=== PATIENT | female | born 1945 | race Caucasian/White ===

== ENCOUNTER 2022-01-24 15:17 | Observation (INO) ==
[2022-01-24] MEDS ORDERED: ALBUT/IPRATROP 3MG/0.5MG NEB 3 ML VIAL INH STA (16:12)
[2022-01-24] MEDS ORDERED: CEFEPIME 2,000 MG/20 ML VIAL IV STA (16:14)
--- NOTE | 2022-01-24 16:16 | Emergency Department Note ---
Impression & Plan Hypoxia, SOB (shortness of breath), Acute bronchitis, COPD exacerbation, Anemia ED Provider Note NAME: DEREK WYNNE AGE: 76 SEX: F : 1945 ARRIVES VIA: Walk-In INFORMANT: [Patient] ED PROVIDER(S): [Narciso Meneses MD] CHIEF COMPLAINT: Shortness of breath HISTORY OF PRESENT ILLNESS: The patient is a 76-year-old female presents to the ER with about a week and a half of increasing shortness of breath. She has had some fever and chills and a productive cough. Things are worse today than they were just a few days ago. She is vaccinated for COVID-19 and influenza. No sick contacts. There has been no vomiting or diarrhea. She feels congested in the nose as well as the chest. No abdominal pain or chest pain. The patient does have COPD, she has had pneumonia in the past. REVIEW OF SYSTEMS: See HPI for pertinent positives and negatives. A total of ten systems were reviewed and were otherwise negative. PMHx/PSHx: See Below SOCIAL HISTORY: See Below. PHYSICAL EXAM: GENERAL: Patient is in no acute distress. HEENT: No acute trauma, normocephalic atraumatic, mucous membranes moist, no nasal congestion, no scleral icterus. NECK: No stridor, no adenopathy, no meningismus, trachea is midline. LUNGS: Diminished breath sounds bilaterally, breath sounds are equal. Wheezes heard bilaterally. HEART: Without murmurs gallops or rubs, regular rate and rhythm. ABDOMEN: Soft, nontender, bowel sounds positive, no hernias, no peritonitis. EXTREMITIES: No cyanosis or edema, full range of motion of all the joints without pain or difficulty, no signs for acute trauma. NEUROLOGIC: Oriented x 3, no acute motor or sensory deficits, no focal weakness. SKIN: No rash, no jaundice, no diaphoresis. DIFFERENTIAL DIAGNOSIS: Reactive airway disease, COVID-19, influenza, pneumonia, pneumothorax, COPD, CHF, infection, cardiac ischemia, pulmonary embolism, bronchitis, musculoskeletal, gastrointestinal, as well as other pathologies. EMERGENCY DEPARTMENT COURSE/PROCEDURES: ECG: Indication was shortness of breath. The ECG shows a normal sinus rhythm with a rate of 70. There is some nonspecific ST change. There is no ST elevation, no PVCs. The QTc is 423. Continuous Cardiac Monitoring: An order was placed for continuous cardiac monitoring. The monitor shows a rate of 73 with normal sinus rhythm. Critical Care Note: I have personally spent 43 minutes of critical care time in the direct management of this patient. This includes bedside care, interpretation of diagnostic studies, and testing, discussion with consultants, patient, and family members, and other required patient management activities. This 43 minutes is in excess of all separately billable procedures. MEDICAL DECISION MAKING: There is no leukocytosis. The patient is anemic. She has a history of anemia although, her hemoglobin value today is lower than recent testing. There is a normal platelet count. No coagulopathy. No concerning electrolyte abnormality, no renal failure. No worrisome liver enzyme elevation. Lactic acid level was not elevated making severe sepsis less likely. ECG shows a normal sinus rhythm, no obvious acute ischemia. Cardiac enzyme testing x1 does not show evidence for acute cardiac injury. COVID, influenza and RSV test returned negative. Chest film does not show pneumonia, pneumothorax or CHF. The patient presents hypoxic. She was requiring O2 supplementation. She was given IV cefepime for antibiotic coverage. She received a DuoNeb. The patient does seem to be feeling improved. She looks better since her treatment here in the ED. The patient appears to have an acute bronchitis with a flare of her COPD. This has led to hypoxia. She has been short of breath. She does require a hospital stay. I spoke with the patient and her family, the on-call hospitalist was consulted. Case management has been involved. 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 of knees, bilateral Osteoporosis Temporomandibular joint disorder Thoracic back pain Surgical History History of arthroscopy of left knee History of bunionectomy History of colonoscopy S/P appendectomy S/P breast biopsy S/P cataract extraction S/P kyphoplasty S/P trigger finger release S/P tubal ligation Family History Sister Colorectal cancer Hypertension Brother Diabetes Colorectal cancer Grandmother (Maternal) Breast cancer Mother Coronary heart disease Diabetes Denies family history of Ovarian cancer Prostate cancer Myocardial infarction Social History Smoking Status: Never smoker Age Started Using Tobacco: 15; packs per day: 0.5; Cigarettes Per Day: 10 CIG DAILY; Second Hand Exposure: Yes; Hx Alcohol Use: Yes Alcohol type: beer and wine Hx Substance Use: No Preferred Language: Turkish Communication Ability: Effective Visual Impairment: No Limitations Hearing Ability: Normal Health And Wellness Advisor Required: No Beliefs That Will Affect Care: None marital status: / Current Living Situation: Alone Current Living Situation Comment: [facility] current occupational status: retired Feels Safe at Home: Yes Childhood Exposure to Second-Hand Smoke: No caffeine: Yes (coffee) Dental Care, Regularly: No Physical Activity Frequency: Does not Exercise Physical Activity Frequency Comment: limited to back and legs/now knee Seatbelt Use: always Sunscreen Use: No Do you think of yourself as: straight/heterosexual Assistive Devices: Cane and Glasses Allergies Allergies Allergy/AdvReac Type Severity Reaction Status Date / Time celecoxib Allergy Severe GI BLEED Verified 01/24/22 18:12 Iodinated Contrast Media Allergy Intermediate HIVES Verified 01/24/22 18:12 ondansetron Allergy Intermediate ITCHING Verified 01/24/22 18:12 prednisone Allergy Intermediate HIVES Verified 01/24/22 18:12 valdecoxib [From Bextra] Allergy Unknown "can't Verified 01/24/22 18:12 remember" clarithromycin AdvReac Intermediate GI UPSET Verified 01/24/22 18:12 fluticasone AdvReac Intermediate GI UPSET Verified 01/24/22 18:12 salmeterol AdvReac Intermediate GI UPSET Verified 01/24/22 18:12 ALL METALS Allergy Intermediate RASH Uncoded 01/24/22 18:12 Home Meds Home Medications Medication Instructions Recorded Confirmed clonazepam 0.5 mg tablet 0.5 mg PO BID PRN #90 tab 02/18/19 01/24/22 cetirizine 10 mg tablet 10 mg PO DAILY PRN 12/10/20 01/24/22 Previous Rx's Medication Instructions Recorded escitalopram oxalate 20 mg tablet 20 mg PO DAILY #90 tab 02/18/19 zolpidem 5 mg tablet 5 mg PO HS #30 tab 02/18/19 albuterol sulfate 90 mcg/actuation 2 puff INH QID PRN #18 gm 07/18/20 aerosol inhaler (Ventolin HFA) cholecalciferol (vitamin D3) 50 50 mcg PO DAILY #90 cap 09/01/20 mcg (2,000 unit) capsule wheeled walker with brakes and seat #1 ea 12/11/20 famotidine 40 mg tablet 40 mg PO HS #90 tab 08/24/21 umeclidinium 62.5 mcg/actuation 1 inh INHALATION DAILY #1 ea 08/24/21 blister powder for inhalation triamterene 37.5 0.5 tab PO DAILY #45 tab 09/30/21 mg-hydrochlorothiazide 25 mg tablet aripiprazole 10 mg tablet (Abilify) 10 mg PO DAILY #90 tab 01/24/22 Results & Data (ED) Vital Signs Vital Signs - 24 hr 01/24/22 15:57 01/24/22 15:58 01/24/22 16:25 Temperature 36.5 C Temperature Source Oral Pulse Rate 72 73 Pulse Rate [Finger] 76 Pulse Rhythm Regular Regular Pulse Rhythm [Finger] Regular Pulse Strength Normal Pulse Strength [Finger] Normal Respiratory Rate 24 25 H Respiratory Effort / Characteristics Labored Accessory Muscle Use Respiratory Depth Normal Shallow Respiratory Pattern Regular Tachypnea Blood Pressure 115/73 Blood Pressure [Right Arm] 133/70 Blood Pressure Mean 87 Blood Pressure Mean [Right Arm] 91 Blood Pressure Position Sitting Blood Pressure Position [Right Arm] Lying Pulse Oximetry 82 L 96 94 Oxygen Delivery Method Room Air Nasal Cannula Nasal Cannula Oxygen Flow Rate 2 2 Sepsis Recent Fever Within 48 Hours No Sepsis New/Unexplained Change in Mental Status No Sepsis Action Taken by Nursing No Action Required 01/24/22 17:06 Temperature Temperature Source Pulse Rate Pulse Rate [Finger] 77 Pulse Rhythm Pulse Rhythm [Finger] Regular Pulse Strength Pulse Strength [Finger] Normal Respiratory Rate 22 Respiratory Effort / Characteristics Non-Labored Respiratory Depth Normal Respiratory Pattern Tachypnea Blood Pressure Blood Pressure [Right Arm] 125/85 Blood Pressure Mean Blood Pressure Mean [Right Arm] 98 Blood Pressure Position Blood Pressure Position [Right Arm] Sitting Pulse Oximetry 92 Oxygen Delivery Method Nasal Cannula Oxygen Flow Rate 2 Sepsis Recent Fever Within 48 Hours Sepsis New/Unexplained Change in Mental Status Sepsis Action Taken by Long Term Medications Current Medication List: was personally reviewed by me Laboratory Data Attestation: I reviewed the patient's lab results. Result diagrams: 01/24/22 16:16 01/24/22 16:16 Lab Results 01/24/22 01/24/22 01/24/22 Range/Units 16:16 16:16 16:16 WBC 5.55 (4.8-10.8) K/uL RBC 4.05 L (4.2-5.4) M/uL Hgb 10.4 L (12.0-16.0) g/dL Hct 33.7 L (37-47) % MCV 83.2 (80-100) fL MCH 25.7 (25-34) pg MCHC 30.9 L (32-36) g/dL RDW Std Deviation 46.0 (36.4-46.3) fL RDW Coeff of Shivam 15.2 H (11.5-14.5) % Plt Count 290 (130-400) K/uL MPV 10.6 H (7.4-10.4) fL Immature Gran % (Auto) 0.4 % Neut % (Auto) 58.6 % Lymph % (Auto) 20.5 % Early % (Auto) 14.6 % Eos % (Auto) 5.0 % Baso % (Auto) 0.9 % Neut # (Auto) 3.25 (1.4-6.5) K/uL Lymph # (Auto) 1.14 L (1.2-3.4) K/uL Early # (Auto) 0.81 H (0.11-0.59) K/uL Eos # (Auto) 0.28 (0-0.5) K/uL Baso # (Auto) 0.05 (0-0.2) K/uL Immature Gran # (Auto) 0.02 (0.00-0.02) K/uL PT 10.8 (9.0-12.0) Seconds INR 1.0 (0.9-1.1) APTT 27.3 (21.0-31.0) Seconds PTT Ratio 1.0 Sodium 139 (136-145) mmol/L Potassium 3.5 (3.5-5.1) mmol/L Chloride 98 (98-107) mmol/L Carbon Dioxide 34 H (21-32) mmol/L Anion Gap 7 (3-11) BUN 20 (6-23) mg/dl Creatinine 0.99 (0.6-1.2) mg/dl Est Cr Clr Drug Dosing 54.8 ml/min Est GFR ( Amer) 64.2 ml/min Est GFR (Non-Af Amer) 55.4 ml/min BUN/Creatinine Ratio 20.2 H (10-20) Glucose 88 (70-99(Fasting)) mg/dl Lactate (0.4-2.0) mmol/L Calcium 10.2 H (8.5-10.1) mg/dl Total Bilirubin 0.5 (0.2-1.0) mg/dl AST 18 (13-39) U/L ALT 22 (7-52) U/L Alkaline Phosphatase 70 (34-104) U/L Troponin I High Sens 7.0 (0-14) pg/ml Total Protein 7.6 (6.0-8.3) gm/dl Albumin 4.0 (3.4-5.0) gm/dl Globulin 3.6 (2.5-4.0) gm/dl Albumin/Globulin Ratio 1.1 (0.9-2) SARS-CoV-2 (PCR) (Negative) Influenza Type A (PCR) (Neg) Influenza Type B (PCR) (Neg) RSV (RT-PCR) (Neg) 01/24/22 01/24/22 Range/Units 16:21 16:33 WBC (4.8-10.8) K/uL RBC (4.2-5.4) M/uL Hgb (12.0-16.0) g/dL Hct (37-47) % MCV (80-100) fL MCH (25-34) pg MCHC (32-36) g/dL RDW Std Deviation (36.4-46.3) fL RDW Coeff of Shivam (11.5-14.5) % Plt Count (130-400) K/uL MPV (7.4-10.4) fL Immature Gran % (Auto) % Neut % (Auto) % Lymph % (Auto) % Early % (Auto) % Eos % (Auto) % Baso % (Auto) % Neut # (Auto) (1.4-6.5) K/uL Lymph # (Auto) (1.2-3.4) K/uL Early # (Auto) (0.11-0.59) K/uL Eos # (Auto) (0-0.5) K/uL Baso # (Auto) (0-0.2) K/uL Immature Gran # (Auto) (0.00-0.02) K/uL PT (9.0-12.0) Seconds INR (0.9-1.1) APTT (21.0-31.0) Seconds PTT Ratio Sodium (136-145) mmol/L Potassium (3.5-5.1) mmol/L Chloride (98-107) mmol/L Carbon Dioxide (21-32) mmol/L Anion Gap (3-11) BUN (6-23) mg/dl Creatinine (0.6-1.2) mg/dl Est Cr Clr Drug Dosing ml/min Est GFR ( Amer) ml/min Est GFR (Non-Af Amer) ml/min BUN/Creatinine Ratio (10-20) Glucose (70-99(Fasting)) mg/dl Lactate 0.7 (0.4-2.0) mmol/L Calcium (8.5-10.1) mg/dl Total Bilirubin (0.2-1.0) mg/dl AST (13-39) U/L ALT (7-52) U/L Alkaline Phosphatase (34-104) U/L Troponin I High Sens (0-14) pg/ml Total Protein (6.0-8.3) gm/dl Albumin (3.4-5.0) gm/dl Globulin (2.5-4.0) gm/dl Albumin/Globulin Ratio (0.9-2) SARS-CoV-2 (PCR) NEGATIVE (Negative) Influenza Type A (PCR) Negative (Neg) Influenza Type B (PCR) Negative (Neg) RSV (RT-PCR) Negative (Neg) Administered Medications Albuterol (Albut/Ipratrop 3mg/0.5mg Neb 3 Ml Vial) 3 ml NEB QIDR [facility]; Protocol Stop: 02/23/22 19:43 Last Admin: 01/24/22 20:39 Dose: 3 ml Documented by: [id number] Enoxaparin Sodium (Enoxaparin Inj 40 Mg/0.4 Ml Syr) 40 mg SQ Q24H TERRANCE Stop: 02/23/22 20:59 Last Admin: 01/24/22 21:47 Dose: 40 mg Documented by: [id number] Famotidine (Famotidine 40 Mg Tablet) 40 mg PO HS TERRANCE Stop: 02/23/22 20:59 Last Admin: 01/24/22 21:49 Dose: 40 mg Documented by: [id number] Formoterol Fumarate (Formoterol 20 Mcg/2 Ml Vial) 20 mcg NEB BIDR TERRANCE Stop: 02/23/22 18:59 Last Admin: 01/24/22 21:12 Dose: Not Given Documented by: [id number] Zolpidem Tartrate (Zolpidem Tartrate 5 Mg Tab) 5 mg PO HS TERRANCE Stop: 02/23/22 20:59 Last Admin: 01/24/22 21:48 Dose: 5 mg Documented by: [id number] Discontinued Medications Albuterol (Albut/Ipratrop 3mg/0.5mg Neb 3 Ml Vial) 3 ml INH NOW STA Stop: 01/24/22 16:13 Last Admin: 01/24/22 16:42 Dose: 3 ml Documented by: [id number] Azithromycin (Azithromycin 250 Mg Tab) 500 mg PO NOW ONE Stop: 01/24/22 19:45 Last Admin: 01/24/22 21:48 Dose: 500 mg Documented by: [id number] Cefepime HCl (Maxipime) 2,000 mg in 20 mls @ 5 mls/min IV NOW STA; Protocol Stop: 01/24/22 16:17 Last Admin: 01/24/22 16:41 Dose: 5 mls/min Documented by: [id number] Imaging Data Radiologist's Impression: Chest X-Ray 01/24/22 16:12 XR chest 1V portable CLINICAL HISTORY: SOB. Positive Covid COMPARISON STUDY: 12/25/2015 TECHNIQUE: 1 view of the chest FINDINGS: Single frontal view of the chest demonstrates the cardiomediastinal silhouette to be within normal limits. There is a decreased inspiratory effort with elevation of the hemidiaphragms and crowding of the bronchovascular markings at the lung bases and centrally. The lungs are clear of alveolar opacities. There is no evidence for pleural effusion. There is no evidence for vascular congesti on. There is no acute osseous pathology. IMPRESSION: 1. There is a decreased inspiratory effort with otherwise no acute chest disease. ACT 112: Negative or not required by law. Electronically signed by: Gonzales Andres M.D. 01/24/2022 4:46 PM Discharge Plan Visit Data Chief Complaint: Shortness of Breath/Dyspnea Stated Complaint: SHORTNESS OF BREATH ED Provider: Narciso Meneses Discharge Problem: Hypoxia, SOB (shortness of breath), Acute bronchitis, COPD exacerbation, Anemia Patient Disposition: Admitted As Inpatient Condition: Fair Discharge Instructions Interventions: ED Discharge Assessment Last Done: 01/24/22 19:28
[2022-01-24 16:36] LABS: Basophils # (auto) 0.05 K/uL (0-0.2); Basophils % (auto) 0.9 %; Eosinophils # (auto) 0.28 K/uL (0-0.5); Hematocrit (blood only) 33.7 % (37-47); Hemoglobin 10.4 g/dL (12.0-16.0); Immature Granulocytes # (auto) 0.02 K/uL (0.00-0.02); Immature Granulocytes % (auto) 0.4 %; Lymphocytes # (auto) 1.14 K/uL (1.2-3.4); Lymphocytes % (auto) 20.5 %; Mean Corpuscular Hemoglobin 25.7 pg (25-34); Mean Corpuscular Hgb Conc 30.9 g/dL (32-36); Mean Corpuscular Volume 83.2 fL (80-100); Mean Platelet Volume 10.6 fL (7.4-10.4); Monocytes # (auto) 0.81 K/uL (0.11-0.59); Monocytes % (auto) 14.6 %; Neutrophils # (auto) 3.25 K/uL (1.4-6.5); Neutrophils % (auto) 58.6 %; Platelet Count 290 K/uL (130-400); RDW Coefficient of Variation 15.2 % (11.5-14.5); Red Blood Count 4.05 M/uL (4.2-5.4); White Blood Count 5.55 K/uL (4.8-10.8)
[2022-01-24 16:44] LABS: Partial Thromboplastin Time 27.3 Seconds (21.0-31.0); Prothrombin Time 10.8 Seconds (9.0-12.0)
--- NOTE | 2022-01-24 16:48 | XRay Report ---
XR chest 1V portable CLINICAL HISTORY: SOB. Positive Covid COMPARISON STUDY: 12/25/2015 TECHNIQUE: 1 view of the chest FINDINGS: Single frontal view of the chest demonstrates the cardiomediastinal silhouette to be within normal li mits. There is a decreased inspiratory effort with elevation of the hemidiaphragms and crowding of th e bronchovascular markings at the lung bases and centrally. The lungs are clear of alveolar opacities . There is no evidence for pleural effusion. There is no evidence for vascular congestion. There is n o acute osseous pathology. IMPRESSION: 1. There is a decreased inspiratory effort with otherwise no acute chest disease. ACT 112: Negative or not required by law. Electronically signed by: Gonzales Andres M.D. 01/24/2022 4:46 PM
[2022-01-24 16:54] LABS: Albumin Globulin Ratio 1.1 (0.9-2); BUN Creatinine Ratio 20.2 (10-20); Bilirubin,Total 0.5 mg/dl (0.2-1.0); Calcium 10.2 mg/dl (8.5-10.1); Creatinine Clr Calc Pharmacy 54.8 ml/min; Est GFR (African American) 64.2 ml/min; Est GFR (Non-African American) 55.4 ml/min; Globulin 3.6 gm/dl (2.5-4.0); Potassium 3.5 mmol/L (3.5-5.1); Total Protein 7.6 gm/dl (6.0-8.3)
[2022-01-24 17:24] LABS: Influenza A virus by PCR Negative (Neg); Influenza B virus by PCR Negative (Neg); RSV by PCR Negative (Neg); SARS CoV2 RNA(COVID-19) InHosp NEGATIVE (Negative)
--- NOTE | 2022-01-24 17:49 | History & Physical Report ---
Date of Service January 24, 2022 Assessment & Plan (1) Chronic obstructive pulmonary disease: Plan: Acute on chronic respiratory failure with hypoxia. Patient with a history of tobacco abuse and likely COPD. No lobar pneumonia is noted and initial viral studies for COVID influenza and RSV are negative. Patient reportedly with sensitivities steroids. Will provide scheduled albuterol and Atrovent as well as inhaled long-acting beta agonist. We will hold her Incruse at this time chest physiotherapy will be employed supplemental oxygen will be used Patient does not have a lobar pneumonia she will be placed on azithromycin for bronchitis She says she has a sensitivity to prednisone therapy which causes her increased agitation etc. however the patient is open to taking intravenous steroids of other types Patient was counseled about tobacco cessation (2) Depression: Plan: Patient will continue escitalopram and clonazepam as needed (3) Hypertension: Plan: For hypertension she takes triamterene hydrochlorothiazide blood pressure on presentation is controlled to low Plan: Patient be continued on Pepcid and a PPI, lovenox for DVT prevention Patient is a DNR, she states that she is ready to go History of Present Illness Primary Care Provider: Alem Lee MD 76-year-old female presents with a week and a half of increasing dyspnea. Patient states she had some chills and a productive cough. These were worse today and prompted her to present to the emergency department. Patient had negative COVID testing in the emergency department. Had no gastrointestinal symptoms. Is a history of both COPD and pneumonia. As an outpatient she typically is on umeclidinium and as needed albuterol there are no PFTs in the chart that I can see typically follows with Dr. Lee Allergies Allergy/AdvReac Type Severity Reaction Status Date / Time celecoxib Allergy Severe GI BLEED Verified 01/24/22 18:12 Iodinated Contrast Media Allergy Intermediate HIVES Verified 01/24/22 18:12 ondansetron Allergy Intermediate ITCHING Verified 01/24/22 18:12 prednisone Allergy Intermediate HIVES Verified 01/24/22 18:12 valdecoxib [From Bextra] Allergy Unknown "can't Verified 01/24/22 18:12 remember" clarithromycin AdvReac Intermediate GI UPSET Verified 01/24/22 18:12 fluticasone AdvReac Intermediate GI UPSET Verified 01/24/22 18:12 salmeterol AdvReac Intermediate GI UPSET Verified 01/24/22 18:12 ALL METALS Allergy Intermediate RASH Uncoded 01/24/22 18:12 Home Medications Medication Instructions Recorded Confirmed Type clonazepam 0.5 mg tablet 0.5 mg PO BID PRN #90 tab 02/18/19 01/24/22 History escitalopram oxalate 20 mg tablet 20 mg PO DAILY #90 tab 02/18/19 01/24/22 Rx zolpidem 5 mg tablet 5 mg PO HS #30 tab 02/18/19 01/24/22 Rx albuterol sulfate 90 mcg/actuation 2 puff INH QID PRN #18 gm 07/18/20 01/24/22 Rx aerosol inhaler (Ventolin HFA) cholecalciferol (vitamin D3) 50 50 mcg PO DAILY #90 cap 09/01/20 01/24/22 Rx mcg (2,000 unit) capsule cetirizine 10 mg tablet 10 mg PO DAILY PRN 12/10/20 01/24/22 History wheeled walker with brakes and seat #1 ea 12/11/20 01/24/22 Rx famotidine 40 mg tablet 40 mg PO HS #90 tab 08/24/21 01/24/22 Rx umeclidinium 62.5 mcg/actuation 1 inh INHALATION DAILY #1 ea 08/24/21 01/24/22 Rx blister powder for inhalation triamterene 37.5 0.5 tab PO DAILY #45 tab 09/30/21 01/24/22 Rx mg-hydrochlorothiazide 25 mg tablet aripiprazole 10 mg tablet (Abilify) 10 mg PO DAILY #90 tab 01/24/22 01/24/22 Rx Past Med/Surg History Medical History Allergic rhinitis Anxiety and depression Asthma Benign colonic polyp Broken teeth Chronic low back pain Chronic obstructive pulmonary disease Esophageal reflux Exertional shortness of breath Gait abnormality Generalized osteoarthritis of multiple sites Hip pain, bilateral Hx of migraines Hypertension Lymphoma Osteoarthritis of knees, bilateral Osteoporosis Temporomandibular joint disorder Thoracic back pain Surgical History History of arthroscopy of left knee History of bunionectomy History of colonoscopy S/P appendectomy S/P breast biopsy S/P cataract extraction S/P kyphoplasty S/P trigger finger release S/P tubal ligation Family History Sister Colorectal cancer Hypertension Brother Diabetes Colorectal cancer Grandmother (Maternal) Breast cancer Mother Coronary heart disease Diabetes Denies family history of Ovarian cancer Prostate cancer Myocardial infarction Social History Smoking Status: Never smoker Age Started Using Tobacco: 15; packs per day: 0.5; Cigarettes Per Day: 10 CIG DAILY; Second Hand Exposure: Yes; Hx Alcohol Use: Yes Alcohol type: beer and wine Hx Substance Use: No Preferred Language: Egyptian Communication Ability: Effective Visual Impairment: No Limitations Hearing Ability: Normal Scraper Hand Required: No Beliefs That Will Affect Care: None marital status: / Current Living Situation: Alone Current Living Situation Comment: [facility] current occupational status: retired Feels Safe at Home: Yes Childhood Exposure to Second-Hand Smoke: No caffeine: Yes (coffee) Dental Care, Regularly: No Physical Activity Frequency: Does not Exercise Physical Activity Frequency Comment: limited to back and legs/now knee Seatbelt Use: always Sunscreen Use: No Do you think of yourself as: straight/heterosexual Assistive Devices: Cane and Glasses Review of Systems Review of Systems: Mild distress and fatigue no headache, no visual changes no speech or swallowing issues no chest pain, pressure or palpitations no shortness of breath, cough or wheezes no abdominal pain, nausea or vomiting, diarrhea or constipation no dysuria, hematuria or frequency no focal joint pain or swelling no back pain, CVA tenderness or radicular pain no bruising, bleeding or rashes no focal signs of weakness or numbness or altered sensation no complaints of anxiety or depression.. Physical Exam Physical Exam: The patient appeared well nourished and normally developed. Vital signs as documented. Head exam is normocephalic atraumatic Neck is without JVD, thyromegaly, or carotid bruits. Lungs are clear to auscultation, no focal loss of breath sounds Cardiac exam, Rhythm is regular.. No murmurs, rubs or gallops. Abdominal exam reveals normal bowel sounds, soft non tender, no masses Extremities are nonedematous and both pedal pulses are present Neurologic exam is alert and oriented, no focal loss of strength or sensation Skin is without bruises or rashes Psychologically is without concerns for anxiety or depression.. Results & Data Results & Data ([facility]) Vital Signs (Past 12 Hours) Vital Signs Temp Pulse Pulse Resp BP BP Pulse Ox 01/24/22 17:06 77 22 125/85 92 01/24/22 16:25 73 76 25 H 133/70 94 01/24/22 15:58 96 01/24/22 15:57 97.7 F 72 24 115/73 82 L Diagnostic Findings Chest X-Ray 01/24/22 16:12 XR chest 1V portable CLINICAL HISTORY: SOB. Positive Covid COMPARISON STUDY: 12/25/2015 TECHNIQUE: 1 view of the chest FINDINGS: Single frontal view of the chest demonstrates the cardiomediastinal silhouette to be within normal limits. There is a decreased inspiratory effort with elevation of the hemidiaphragms and crowding of the bronchovascular markings at the lung bases and centrally. The lungs are clear of alveolar opacities. There is no evidence for pleural effusion. There is no evidence for vascular congestion. There is no acute osseous pathology. IMPRESSION: 1. There is a decreased inspiratory effort with otherwise no acute chest disease. ACT 112: Negative or not required by law. Electronically signed by: Gonzales Andres M.D. 01/24/2022 4:46 PM ECG Additional Comments: Patient has normal sinus rhythm with flattened lateral T waves but nothing new compared to an old EKG PG Care Time/CCT Total # of Minutes Spent Total Time Spent with Patient: Total time spent is greater than 50% in coordination of care (as documented) at patient's floor/unit and/or counseling patient: Coding Level of Care Code INT OBSERVATION CARE 70M LVL 3 Diagnoses Chronic obstructive pulmonary disease J43.9 COPD type: emphysema Emphysema type: unspecified Depression F33.41 Active/Remission status: in partial remission Depression Type: major depressive disorder Major depression recurrence: recurrent Hypertension I10 Hypertension type: essential hypertension (1) Depression Active/Remission status: in partial remission Depression Type: major depressive disorder Major depression recurrence: recurrent Qualified Code(s): F33.41 - Major depressive disorder, recurrent, in partial remission (2) Chronic obstructive pulmonary disease COPD type: emphysema Emphysema type: unspecified Qualified Code(s): J43.9 - Emphysema, unspecified (3) Hypertension Hypertension type: essential hypertension Qualified Code(s): I10 - Essential (primary) hypertension
[2022-01-24] MEDS ORDERED: AZITHROMYCIN 250 MG TAB PO ONE (19:44)
[2022-01-24] MEDS ORDERED: clonazePAM 0.5 MG TAB PO PRN (19:44)
[2022-01-24] MEDS ORDERED: ALUMINUM/MAGNESIUM SUSP 30 ML UDC PO PRN (19:44)
[2022-01-24] MEDS ORDERED: ONDANSETRON INJ 2 MG/ML 2 ML VIAL IV PRN (19:44)
[2022-01-24] MEDS ORDERED: POLYETHYLENE (MIRALAX) 17 GM PACK PO PRN (19:44)
[2022-01-24] MEDS ORDERED: ACETAMINOPHEN 325 MG TAB PO PRN (19:44)
[2022-01-24] MEDS: ALBUT/IPRATROP 3MG/0.5MG NEB 3 ML VIAL NEB SCH (20:39)
[2022-01-24] MEDS: FORMOTEROL 20 MCG/2 ML VIAL NEB SCH (21:12)
[2022-01-24] MEDS: ENOXAPARIN INJ 40 MG/0.4 ML SYR SQ SCH (21:47)
[2022-01-24] MEDS: ZOLPIDEM TARTRATE 5 MG TAB PO SCH (21:48)
[2022-01-24] MEDS: FAMOTIDINE 40 MG TABLET PO SCH (21:49)
[2022-01-25 06:10] LABS: Hematocrit (blood only) 31.9 % (37-47); Hemoglobin 10.1 g/dL (12.0-16.0); Mean Corpuscular Hemoglobin 26.6 pg (25-34); Mean Corpuscular Hgb Conc 31.7 g/dL (32-36); Mean Corpuscular Volume 84.2 fL (80-100); Platelet Count 247 K/uL (130-400); RDW Coefficient of Variation 15.1 % (11.5-14.5); RDW Standard Deviation 46.6 fL (36.4-46.3); Red Blood Count 3.79 M/uL (4.2-5.4); White Blood Count 4.96 K/uL (4.8-10.8)
[2022-01-25 06:26] LABS: BUN Creatinine Ratio 20.7 (10-20); Calcium 9.8 mg/dl (8.5-10.1); Est GFR (African American) 70.1 ml/min; Est GFR (Non-African American) 60.5 ml/min; Potassium 3.5 mmol/L (3.5-5.1)
[2022-01-25] MEDS: ALBUT/IPRATROP 3MG/0.5MG NEB 3 ML VIAL NEB SCH ×4 (07:22→19:39)
[2022-01-25] MEDS: FORMOTEROL 20 MCG/2 ML VIAL NEB SCH ×2 (07:22→19:38)
[2022-01-25] MEDS: ARIPiprazole 10 MG TAB PO SCH (09:07)
[2022-01-25] MEDS: AZITHROMYCIN 250 MG TAB PO SCH (09:08)
[2022-01-25] MEDS: CHOLECALCIFEROL 1,000 UNITS 25 MCG TAB PO SCH (09:08)
[2022-01-25] MEDS: TRIAMTERENE/HCTZ 37.5/25MG TAB PO SCH (09:09)
[2022-01-25] MEDS: ESCITALOPRAM OXALATE 20 MG TAB PO SCH (09:09)
--- NOTE | 2022-01-25 13:29 | Electrocardiogram Report ---
Test Reason : Blood Pressure : / mmHG Vent. Rate : 070 BPM Atrial Rate : 070 BPM P-R Int : 150 ms QRS Dur : 098 ms QT Int : 392 ms P-R-T Axes : 050 -17 055 degrees QTc Int : 423 ms Poor data quality, interpretation may be adversely affected Normal sinus rhythm Leftward axis Abnormal ECG When compared with ECG of 25-DEC-2015 22:41, No significant change was found Confirmed by Darío Carmichael ([id number]) on 01/25/2022 1:29:00 PM Referred By: Alem Lee Confirmed By:Darío Carmichael
[2022-01-25] MEDS: FAMOTIDINE 40 MG TABLET PO SCH (20:38)
[2022-01-25] MEDS: ENOXAPARIN INJ 40 MG/0.4 ML SYR SQ SCH (20:38)
--- NOTE | 2022-01-25 21:18 | Hospitalist Progress Note ---
Date of Service January 25, 2022 Assessment & Plan (1) Chronic obstructive pulmonary disease: Plan: Acute on chronic respiratory failure with hypoxia. Patient with a history of tobacco abuse and likely COPD. No lobar pneumonia is noted and initial viral studies for COVID influenza and RSV are negative. Patient reportedly with sensitivities steroids. Will provide scheduled albuterol and Atrovent as well as inhaled long-acting beta agonist. We will hold her Incruse at this time chest physiotherapy will be employed supplemental oxygen will be used Patient does not have a lobar pneumonia she will be placed on azithromycin for bronchitis Added Anoro on 01/25. will likely need 2 step in AM if patient is feeling ready for discharge. She says she has a sensitivity to prednisone therapy which causes her increased agitation etc. however the patient is open to taking intravenous steroids of other types Patient was counseled about tobacco cessation (2) Depression: Plan: Patient will continue escitalopram and clonazepam as needed (3) Hypertension: Plan: For hypertension she takes triamterene hydrochlorothiazide blood pressure on presentation is controlled to low Plan: Patient be continued on Pepcid and a PPI, lovenox for DVT prevention Patient is a DNR, she states that she is ready to go Admission and Anticipated Discharge Date Admission Date: January 24, 2022 Subjective Patient reports that she does not use oxygen at home. She is still not at baseline. Review of Systems Review of Systems: All systems reviewed & are unremarkable except as noted in HPI & below Physical Exam Physical Exam: The patient appeared well nourished and normally developed. Vital signs as documented. Head exam is normocephalic atraumatic Neck is without JVD, thyromegaly, or carotid bruits. Lungs: DECREASED breath sounds, no focal loss of breath sounds Cardiac exam, Rhythm is regular.. No murmurs, rubs or gallops. Abdominal exam reveals normal bowel sounds, soft non tender, no masses Extremities are nonedematous and both pedal pulses are present Neurologic exam is alert and oriented, no focal loss of strength or sensation Skin is without bruises or rashes Psychologically is without concerns for anxiety or depression. Results & Data Results & Data ([facility]) Vital Signs (Past 12 Hours) Vital Signs Temp Pulse Resp BP Pulse Ox 01/25/22 19:41 76 18 92 01/25/22 19:40 36.6 C 54 L 16 119/78 92 01/25/22 16:37 36.6 C 70 18 102/57 L 91 01/25/22 15:10 70 93 01/25/22 10:50 82 18 88 L PG Care Time/CCT Total # of Minutes Spent Total Time Spent with Patient: Total time spent is greater than 50% in coordination of care (as documented) at patient's floor/unit and/or counseling patient: Coding Level of Care Code 60221 Subseq Hosp Care Lvl 2 Diagnoses Chronic obstructive pulmonary disease J43.9 COPD type: emphysema Emphysema type: unspecified Depression F33.41 Active/Remission status: in partial remission Depression Type: major depressive disorder Major depression recurrence: recurrent Hypertension I10 Hypertension type: essential hypertension (1) Depression Active/Remission status: in partial remission Depression Type: major depressive disorder Major depression recurrence: recurrent Qualified Code(s): F33.41 - Major depressive disorder, recurrent, in partial remission (2) Chronic obstructive pulmonary disease COPD type: emphysema Emphysema type: unspecified Qualified Code(s): J43.9 - Emphysema, unspecified (3) Hypertension Hypertension type: essential hypertension Qualified Code(s): I10 - Essential (primary) hypertension
[2022-01-25] MEDS: ZOLPIDEM TARTRATE 5 MG TAB PO SCH (22:32)
[2022-01-26 06:52] LABS: Hematocrit (blood only) 32.6 % (37-47); Mean Corpuscular Hemoglobin 25.9 pg (25-34); Mean Corpuscular Hgb Conc 30.7 g/dL (32-36); Mean Corpuscular Volume 84.5 fL (80-100); Mean Platelet Volume 10.5 fL (7.4-10.4); Platelet Count 265 K/uL (130-400); RDW Coefficient of Variation 15.3 % (11.5-14.5); RDW Standard Deviation 47.1 fL (36.4-46.3); Red Blood Count 3.86 M/uL (4.2-5.4); White Blood Count 5.41 K/uL (4.8-10.8)
[2022-01-26 07:11] LABS: BUN Creatinine Ratio 22.8 (10-20); Calcium 9.8 mg/dl (8.5-10.1); Est GFR (African American) 70.1 ml/min; Est GFR (Non-African American) 60.5 ml/min; Potassium 3.6 mmol/L (3.5-5.1)
[2022-01-26] MEDS: ALBUT/IPRATROP 3MG/0.5MG NEB 3 ML VIAL NEB SCH ×2 (07:22→11:34)
[2022-01-26 07:34] VITALS: BP 118/76; TEMP 97.7
[2022-01-26] MEDS ORDERED: UMECLIDINIUM/VILANTEROL 62.5/25MCG 7 PUFFS/INHALER INH SCH (09:00)
[2022-01-26] MEDS: ARIPiprazole 10 MG TAB PO SCH (09:16)
[2022-01-26] MEDS: ESCITALOPRAM OXALATE 20 MG TAB PO SCH (09:17)
[2022-01-26] MEDS: AZITHROMYCIN 250 MG TAB PO SCH (09:17)
[2022-01-26] MEDS: CHOLECALCIFEROL 1,000 UNITS 25 MCG TAB PO SCH (09:17)
[2022-01-26] MEDS: TRIAMTERENE/HCTZ 37.5/25MG TAB PO SCH (09:18)
[2022-01-26 11:37] VITALS: PULSE 84; O2SAT 92
--- NOTE | 2022-01-26 14:08 | Discharge Summary ---
Date of Service January 26, 2022 Admission HPI Per Admitting Provider 76-year-old female presents with a week and a half of increasing dyspnea. Patient states she had some chills and a productive cough. These were worse today and prompted her to present to the emergency department. Patient had negative COVID testing in the emergency department. Had no gastrointestinal symptoms. Is a history of both COPD and pneumonia. As an outpatient she typically is on umeclidinium and as needed albuterol there are no PFTs in the chart that I can see typically follows with Dr. Lee Principal Diagnosis acute copd exacerbation, bronchitis Discharge Data Allergies Allergy/AdvReac Type Severity Reaction Status Date / Time celecoxib Allergy Severe GI BLEED Verified 01/24/22 18:12 Iodinated Contrast Media Allergy Intermediate HIVES Verified 01/24/22 18:12 ondansetron Allergy Intermediate ITCHING Verified 01/24/22 18:12 prednisone Allergy Intermediate HIVES Verified 01/24/22 18:12 valdecoxib [From Bextra] Allergy Unknown "can't Verified 01/24/22 18:12 remember" clarithromycin AdvReac Intermediate GI UPSET Verified 01/24/22 18:12 fluticasone AdvReac Intermediate GI UPSET Verified 01/24/22 18:12 salmeterol AdvReac Intermediate GI UPSET Verified 01/24/22 18:12 ALL METALS Allergy Intermediate RASH Uncoded 01/24/22 18:12 Hospital Course (1) Chronic obstructive pulmonary disease: Acute on chronic respiratory failure with hypoxia. Patient with a history of tobacco abuse and likely COPD. No lobar pneumonia is noted and initial viral studies for COVID influenza and RSV are negative. Patient reportedly with sensitivities steroids. Will provide scheduled albuterol and Atrovent as well as inhaled long-acting beta agonist. We will hold her Incruse at this time chest physiotherapy will be employed supplemental oxygen will be used Patient does not have a lobar pneumonia she will be placed on azithromycin for bronchitis Added Anoro on 01/25. 2 step done, will need 2L of oxygen during ambulation She says she has a sensitivity to prednisone therapy which causes her increased agitation etc. however the patient is open to taking intravenous steroids of other types Patient was counseled about tobacco cessation (2) Depression: Patient will continue escitalopram and clonazepam as needed (3) Hypertension: For hypertension she takes triamterene hydrochlorothiazide blood pressure on presentation is controlled to low discharge home on 2L of oxygen during ambulation Total Time Total Time Spent Total Time Spent (In Minutes): 35 Discharge Plan Discharge Items Patient Disposition: Home - Self-Care Reason For Visit: ACUTE ON CHRONIC RESPIRATORY FAILURE WITH HYPOXIA Discharge Diagnosis: COPD Exacerbation, acute bronchitis Condition on Discharge: Fair Activity: Resume your previous activity Non-emergency contact: Primary Care Provider Call non-emergency contact if: you have any medication questions Follow-up/Referrals: Alem Lee MD [Primary Care Provider] - Carlee Nogueira CRNP [Nurse Practitioner] - 01/31/22 9:30 am Diet: Regular Addtl Attending Provider Instructions: please make appointment to follow up with your PCP Pending Studies at Discharge: No Stand-Alone Forms: My [employer] Tuning, Smoking Cessation Medications and DC Order Prescriptions: New azithromycin 250 mg Tablet 250 mg PO QAM 3 Days Qty: 3 RF: 0 Continued albuterol sulfate [Ventolin HFA] 90 mcg/actuation HFA aerosol inhaler 2 puff INH QID PRN (Reason: shortness of breath or wheezing) Qty: 18 RF: 3 cholecalciferol (vitamin D3) 50 mcg (2,000 unit) capsule 50 mcg PO DAILY Qty: 90 RF: 3 triamterene-hydrochlorothiazid 37.5-25 mg tablet 0.5 tab PO DAILY Qty: 45 RF: 1 clonazepam 0.5 mg tablet 0.5 mg PO BID PRN (Reason: Anxiety) Qty: 90 RF: 0 umeclidinium 62.5 mcg/actuation blister with device 1 inh inhalation DAILY Qty: 1 RF: 11 famotidine 40 mg tablet 40 mg PO HS Qty: 90 RF: 3 cetirizine 10 mg tablet 10 mg PO DAILY PRN (Reason: Congestion) RF: 0 (DME) wheeled walker with brakes and seat See Rx Instructions .Route .MEDSUPPLY Qty: 1 RF: 0 aripiprazole [Abilify] 10 mg tablet 10 mg PO DAILY Qty: 90 RF: 3 escitalopram oxalate 20 mg tablet 20 mg PO DAILY Qty: 90 RF: 3 zolpidem 5 mg tablet 5 mg PO HS Qty: 30 RF: 0 Discharge Orders: Discharge Order (Routine); Ordered 01/26/22 Ordered By: Von Mahan/Other Patient Handouts: Chronic Lung Disease Avoid These, Oxygen Supplemental, Chronic Lung Disease Stretching Admission Data Admit Date/Time: 01/24/22 18:04 Attending Provider: Von Aragon Admit Provider: Zackary Bolton Primary Care Provider: Alem Lee Other Interventions: Discharge Summary Assessment (RN) Last Done: 01/26/22 12:10 Coding Level of Care Code D/C DAY MANAGEMENT >30 MINS Diagnoses Chronic obstructive pulmonary disease 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
== END 2022-01-26 12:31 | disposition home or self-care (01) ==
LOC: 3N 15:17 → ED 15:17 → SUATTDRO 18:04 → 3N 19:28